=== PATIENT | male | born 1980 | race Caucasian/White ===

== ENCOUNTER 2017-03-25 15:52 | Emergency (ER) | payer SELFPAY ==
[~2017-03-25] VITALS: Ht 172.7 cm; Wt 61.9 kg
[2017-03-25 15:59] VITALS: BP 113/55; PULSE 86; RESP 16; TEMP 99; O2SAT 96
[2017-03-25] MEDS ORDERED: VANCOMYCIN INJ 1,000 MG in SODIUM CHLOR 0.9% 250 ML INJ 250 ML IV ONE (16:45)
[2017-03-25] MEDS ORDERED: PIPERACIL-TAZO 3.375 GM PREMIX 50 ML IV ONE (16:45)
--- NOTE | 2017-03-25 16:52 | PD ---
HPI Chief Complaint: Skin Problem Time Seen by Provider: 16:38 Travel History International Travel<30 days: No Contact w/Intl Traveler<30days: No Traveled to known affect area: No History of Present Illness HPI This patient complains of right arm infection. Duration 3 days. He is he is an IV drug abuser but denies using that is an injection site. 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 Symptoms are moderately severe. He denies fever. He has a huge abscess on his right bicep. No alleviating factors. no Exacerbating factors. Pain is worse with movement of the right arm. He's had no drainage. PFSH Past Medical History Medical History: Denies Significant Hx Hx Anticoagulant Therapy: No Arthritis: No Asthma: No Heart Rhythm Problems: No Cardiovascular Problems: No High Cholesterol: No Chest Pain: No Congestive Heart Failure: No COPD: No Diminished Hearing: No GERD: No Genitourinary: No Hepatitis: No Hiatal Hernia: No Hypertension: Yes Kidney Stones: No Musculoskeletal: No Reproductive: No Immunizations Current: Yes Myocardial Infarction: No Renal Failure: No Sleep Apnea: No Ulcer: No Tetanus Vaccination: > 5 Years Influenza Vaccination: Yes Past Surgical History Cholecystectomy: No Oral Surgery: Yes (JAW) Other Surgery: No Social History Alcohol Use: Yes (OCCASIONAL) Tobacco Use: Yes (1 PPD) Substance Use: No (DENIES) Allergies-Medications (Allergen,Severity, Reaction): Coded Allergies: No Known Allergies (Verified Adverse Reaction, Unknown, 03/25/17) Reported Meds & Prescriptions Reported Meds & Active Scripts Active Clindamycin (Clindamycin HCl) 150 Mg Cap 300 Mg PO Q6H 10 Days Bactrim DS (Sulfamethoxazole-Trimethoprim) 800-160 Mg Tab 1 Tab PO BID Review of Systems General / Constitutional: No: Fever Eyes: No: Visual changes HENT: No: Headaches Cardiovascular: No: Chest Pain or Discomfort Respiratory: No: Shortness of Breath Gastrointestinal: No: Abdominal Pain Genitourinary: No: Dysuria Musculoskeletal: Positive: Pain Skin: No Rash Neurologic: No: Weakness Psychiatric: Positive: Substance Abuse, No: Depression Endocrine: No: Polydipsia Hematologic/Lymphatic: No: Easy Bruising Physical Exam Narrative GENERAL: Well-nourished, well-developed patient in no apparent distress. SKIN: Focused skin assessment reveals no rash and nodules. Skin is Warm and dry. HEAD: Atraumatic. Normocephalic. EYES: Pupils equal and round. No scleral icterus. No injection or drainage. ENT: No nasal bleeding or discharge. Mucous membranes pink and moist. NECK: Trachea midline. No JVD. CARDIOVASCULAR: Regular rate and rhythm. No murmur appreciated. RESPIRATORY: No accessory muscle use. Clear to auscultation. Breath sounds equal bilaterally. GASTROINTESTINAL: Abdomen soft, non-tender, nondistended. Hepatic and splenic margins not palpable. MUSCULOSKELETAL: No obvious deformities. No clubbing. No cyanosis. No edema. Patient has a huge abscess over the right bicep. It's fluctuant. There is no active drainage. It's tender. There is some induration and cellulitis of the upper arm around that region. Dried scabbed lesion in the left antecubital fossa. NEUROLOGICAL: Awake and alert. No obvious cranial nerve deficits. Motor grossly within normal limits. Normal speech. PSYCHIATRIC: Appropriate mood and affect; insight and judgment reduced. Data Data Last Documented VS Vital Signs Date Time Temp Pulse Resp B/P (MAP) Pulse Ox O2 Delivery O2 Flow Rate FiO2 03/25/17 15:59 99.0 86 16 113/55 (74) 96 Orders Orders Iv Access Insert/Monitor (03/25/17 16:38) Complete Blood Count With Diff (03/25/17 16:38) Comprehensive Metabolic Panel (03/25/17 16:38) Wound Culture And Gram Stain (03/25/17 16:38) Vancomycin Inj (Vancomycin Inj) (03/25/17 16:45) Piperacil-Tazo 3.375 Gm Premix (Zosyn 3. (03/25/17 16:45) Ondansetron Inj (Zofran Inj) (03/25/17 17:30) Morphine Inj (Morphine Inj) (03/25/17 17:30) Labs Laboratory Tests Test 03/25/17 16:58 White Blood Count 12.8 TH/MM3 Red Blood Count 4.61 MIL/MM3 Hemoglobin 13.1 GM/DL Hematocrit 39.4 % Mean Corpuscular Volume 85.5 FL Mean Corpuscular Hemoglobin 28.5 PG Mean Corpuscular Hemoglobin Concent 33.3 % Red Cell Distribution Width 13.3 % Platelet Count 415 TH/MM3 Mean Platelet Volume 8.2 FL Neutrophils (%) (Auto) 81.1 % Lymphocytes (%) (Auto) 10.5 % Monocytes (%) (Auto) 6.8 % Eosinophils (%) (Auto) 1.2 % Basophils (%) (Auto) 0.4 % Neutrophils # (Auto) 10.3 TH/MM3 Lymphocytes # (Auto) 1.3 TH/MM3 Monocytes # (Auto) 0.9 TH/MM3 Eosinophils # (Auto) 0.2 TH/MM3 Basophils # (Auto) 0.1 TH/MM3 CBC Comment DIFF FINAL Differential Comment Blood Urea Nitrogen 11 MG/DL Creatinine 0.61 MG/DL Random Glucose 147 MG/DL Total Protein 7.0 GM/DL Albumin 2.9 GM/DL Calcium Level 8.4 MG/DL Alkaline Phosphatase 68 U/L Aspartate Amino Transf (AST/SGOT) 20 U/L Alanine Aminotransferase (ALT/SGPT) 13 U/L Total Bilirubin 0.2 MG/DL Sodium Level 133 MEQ/L Potassium Level 4.4 MEQ/L Chloride Level 98 MEQ/L Carbon Dioxide Level 31.1 MEQ/L Anion Gap 4 MEQ/L Estimat Glomerular Filtration Rate 150 ML/MIN MDM Medical Decision Making Medical Screen Exam Complete: Yes Emergency Medical Condition: Yes Medical Record Reviewed: Yes Differential Diagnosis Abscess, cellulitis, allergic reaction Narrative Course I have reviewed the patient's electronic medical record. This patient has a huge abscess on his right bicep IV placed PA Kinsey is going to incise and drain Sample will be sent for culture and Gram stain I gave him then IV vancomycin and IV Zosyn CBC is normal Metabolic profile is normal LFTs are normal Patient will require admission for IV antibiotics for this significant right arm infection complicated by active IV drug abuse. I discussed this at length with the patient but he is signing out AGAINST MEDICAL ADVICE. I reviewed the risks with him. I think this will be much better served in the hospital. Rather than having [facility] etc. wrote him 10 days of Bactrim DS and clindamycin explaining full all this was not what I recommended and he is at risk for getting septic or losing his arm if this continues to progress Diagnosis Primary Impression: Abscess of right upper extremity Additional Impression: IV drug abuse Scripts Clindamycin (Clindamycin) 150 Mg Cap 300 MG PO Q6H for Infection for 10 Days, #80 CAP 0 Refills Prov: Onur Salguero MD 03/25/17 Sulfamethoxazole-Trimethoprim (Bactrim DS) 800-160 Mg Tab 1 TAB PO BID for Infection, #20 TAB 0 Refills Prov: Onur Salguero MD 03/25/17 Disposition: 07 AGAINST MEDICAL ADVICE Condition: Serious Onur Salguero MD Mar 25, 2017 16:52
[2017-03-25 17:20] LABS: AUTOMATED NEUTROPHIL # 10.3 TH/MM3 (1.8-7.7); BASOPHIL # 0.1 TH/MM3 (0-0.2); BASOPHIL % 0.4 % (0.0-2.0); EOSINOPHIL # 0.2 TH/MM3 (0-0.4); EOSINOPHIL % 1.2 % (0.0-4.0); HEMATOCRIT 39.4 % (39.0-51.0); HEMOGLOBIN 13.1 GM/DL (13.0-17.0); LYMPH % 10.5 % (9.0-44.0); LYMPHOCYTE # 1.3 TH/MM3 (1.0-4.8); MEAN CELL VOLUME 85.5 FL (80.0-100.0); MEAN CORPUSCULAR HEMOGLOBIN 28.5 PG (27.0-34.0); MEAN CORPUSCULAR HGB CONC 33.3 % (32.0-36.0); MEAN PLATELET VOLUME 8.2 FL (7.0-11.0); MONO % 6.8 % (0.0-8.0); MONOCYTE # 0.9 TH/MM3 (0-0.9); NEUT % 81.1 % (16.0-70.0); PLATELET COUNT 415 TH/MM3 (150-450); RED BLOOD COUNT 4.61 MIL/MM3 (4.50-5.90); RED CELL DISTRIBUTION WIDTH 13.3 % (11.6-17.2); WHITE BLOOD COUNT 12.8 TH/MM3 (4.0-11.0)
[2017-03-25] MEDS ORDERED: ONDANSETRON HCL 4 MG/2 ML VIAL IVP ONE (17:30)
[2017-03-25] MEDS ORDERED: MORPHINE SULFATE 4 MG/ML INJ IV PUSH ONE (17:30)
[2017-03-25 17:40] LABS: CHLORIDE 98 MEQ/L (98-107); SODIUM (NA) 133 MEQ/L (136-145)
[2017-03-25 17:44] LABS: ALBUMIN 2.9 GM/DL (3.4-5.0); BICARBONATE 31.1 MEQ/L (21.0-32.0); BLOOD UREA NITROGEN 11 MG/DL (7-18); CALCIUM 8.4 MG/DL (8.5-10.1); GLUCOSE,RANDOM 147 MG/DL (74-106)
[2017-03-25 17:47] LABS: ALT (GPT) 13 U/L (12-78); AST (GOT) 20 U/L (15-37); CREATININE 0.61 MG/DL (0.60-1.30); GLOMERULAR FILTRATION RATE 150 ML/MIN (>89)
[2017-03-25 17:49] LABS: TOTAL BILIRUBIN ADULT 0.2 MG/DL (0.2-1.0)
[2017-03-25 17:50] LABS: ALKALINE PHOSPHATASE 68 U/L (45-117)
--- NOTE | 2017-03-25 18:53 | PD ---
Physical Exam Narrative I was has been maintaining physician Dr. Noemy canales to perform incision and drainage the patient's abscess to the right upper extremity Data Data Last Documented VS Vital Signs Date Time Temp Pulse Resp B/P (MAP) Pulse Ox O2 Delivery O2 Flow Rate FiO2 03/25/17 15:59 99.0 86 16 113/55 (74) 96 Orders Orders Iv Access Insert/Monitor (03/25/17 16:38) Complete Blood Count With Diff (03/25/17 16:38) Comprehensive Metabolic Panel (03/25/17 16:38) Wound Culture And Gram Stain (03/25/17 16:38) Vancomycin Inj (Vancomycin Inj) (03/25/17 16:45) Piperacil-Tazo 3.375 Gm Premix (Zosyn 3. (03/25/17 16:45) Ondansetron Inj (Zofran Inj) (03/25/17 17:30) Morphine Inj (Morphine Inj) (03/25/17 17:30) Labs Laboratory Tests Test 03/25/17 16:58 White Blood Count 12.8 TH/MM3 Red Blood Count 4.61 MIL/MM3 Hemoglobin 13.1 GM/DL Hematocrit 39.4 % Mean Corpuscular Volume 85.5 FL Mean Corpuscular Hemoglobin 28.5 PG Mean Corpuscular Hemoglobin Concent 33.3 % Red Cell Distribution Width 13.3 % Platelet Count 415 TH/MM3 Mean Platelet Volume 8.2 FL Neutrophils (%) (Auto) 81.1 % Lymphocytes (%) (Auto) 10.5 % Monocytes (%) (Auto) 6.8 % Eosinophils (%) (Auto) 1.2 % Basophils (%) (Auto) 0.4 % Neutrophils # (Auto) 10.3 TH/MM3 Lymphocytes # (Auto) 1.3 TH/MM3 Monocytes # (Auto) 0.9 TH/MM3 Eosinophils # (Auto) 0.2 TH/MM3 Basophils # (Auto) 0.1 TH/MM3 CBC Comment DIFF FINAL Differential Comment Blood Urea Nitrogen 11 MG/DL Creatinine 0.61 MG/DL Random Glucose 147 MG/DL Total Protein 7.0 GM/DL Albumin 2.9 GM/DL Calcium Level 8.4 MG/DL Alkaline Phosphatase 68 U/L Aspartate Amino Transf (AST/SGOT) 20 U/L Alanine Aminotransferase (ALT/SGPT) 13 U/L Total Bilirubin 0.2 MG/DL Sodium Level 133 MEQ/L Potassium Level 4.4 MEQ/L Chloride Level 98 MEQ/L Carbon Dioxide Level 31.1 MEQ/L Anion Gap 4 MEQ/L Estimat Glomerular Filtration Rate 150 ML/MIN MDM Supervised Visit with MICHELE: Yes Procedures Procedure Narrative INCISION AND DRAINAGE OF ABSCESS: The area was prepped and was sterilely draped. A subcutaneous wheal of 1 % Xylocaine was used to anesthetize the area properly. A number [11] scalpel was used to make a [7] -mm incision across the area of the abscess. The abscess was drained, complex loculations were broken down, and irrigated with normal saline. Cultures were obtained. Quarter inch iodoform packing was placed in the wound. Sterile dressing applied. Patient advised to have packing removed in two days. Scripts No Active Prescriptions or Reported Meds Kinsey Arita Mar 25, 2017 18:53
[2017-03-25] MEDS ORDERED: BACT800T5 PO (19:15)
[2017-03-25] MEDS ORDERED: CLIN150C14 PO (19:15)
== END 2017-03-25 19:29 | disposition left against medical advice (07) ==
LOC: PHEFT 15:52
DX: L02.413 Cutaneous abscess of right upper limb (principal); F19.10 Other psychoactive substance abuse, uncomplicated; I10 Essential (primary) hypertension
CPT/HCPCS: 10061; 80053; 85025; 86403; 87070; 96365; 96366; 96375; 99283; J2270; J2405; J2543; J3370; J7050; 87205

== ENCOUNTER 2017-07-17 22:17 | Emergency (ER) | payer SELFPAY ==
[~2017-07-17] VITALS: Ht 172.7 cm; Wt 61.3 kg
[~2017-07-17 22:17] MED LIST: BACT800T5 PO; CLIN150C14 PO
[2017-07-17 22:21] VITALS: BP 128/73; PULSE 76; RESP 16; TEMP 98.3; O2SAT 98
[2017-07-17] MEDS ORDERED: SUBO8MIS SL (22:24)
--- NOTE | 2017-07-17 23:03 | PD ---
HPI Chief Complaint: Skin Problem Time Seen by Provider: 22:26 Travel History International Travel<30 days: No Contact w/Intl Traveler<30days: No Traveled to known affect area: No History of Present Illness HPI This is a 36-year-old male who has a history of IV drug use who presents to the emergency department with raised bumps on his forearms some of which are warm, moderate severity, present for 1 week associated with some chills. He has been using IV heroin. These bumps are in the areas where he shot up. He does report that he feels some chills he has had a cough. He denies any chest pain. PFSH Past Medical History Hx Anticoagulant Therapy: No Arthritis: No Asthma: No Heart Rhythm Problems: No Cardiovascular Problems: No High Cholesterol: No Chest Pain: No Congestive Heart Failure: No COPD: No Diminished Hearing: No GERD: No Genitourinary: No Hepatitis: No Hiatal Hernia: No Hypertension: Yes Kidney Stones: No Musculoskeletal: No Reproductive: No Immunizations Current: Yes Myocardial Infarction: No Renal Failure: No Sleep Apnea: No Ulcer: No Influenza Vaccination: Yes Past Surgical History Cholecystectomy: No Oral Surgery: Yes (JAW) Other Surgery: No Social History Alcohol Use: Yes (OCCASIONAL) Tobacco Use: Yes (1 PPD) Substance Use: Yes (STATED 07/17/17 "I'M PRESCRIBED SUBOXONE, BEEN USING IV HEROIN", COCAINE) Allergies-Medications (Allergen,Severity, Reaction): Coded Allergies: No Known Allergies (Verified Adverse Reaction, Unknown, 07/17/17) Reported Meds & Prescriptions Reported Meds & Active Scripts Active Reported Suboxone Sublingual Film (Buprenorphine-Naloxone Sublingual Film) 8-2 Mg Film 1 Film SL TID Unique ID number required: Review of Systems Except as stated in HPI: all other systems reviewed are Neg Physical Exam Narrative GENERAL:Well appearing, no acute distress SKIN: Multiple scattered small raised indurated lumps on the bilateral forearms , none are fluctuant HEAD: Atraumatic. Normocephalic. EYES: Pupils equal and round. No injection or drainage. ENT: Moist mucous membranes NECK: Trachea midline. CARDIOVASCULAR: Regular rate and rhythm. No murmur appreciated. RESPIRATORY: Clear to auscultation. Breath sounds equal bilaterally. GASTROINTESTINAL: Abdomen soft, non-tender, nondistended. MUSCULOSKELETAL: No obvious deformities. NEUROLOGICAL: Awake and alert. No obvious cranial nerve deficits. Moving all extremities. PSYCHIATRIC: Appropriate mood and affect; insight and judgment normal. Data Data Last Documented VS Vital Signs Date Time Temp Pulse Resp B/P (MAP) Pulse Ox O2 Delivery O2 Flow Rate FiO2 07/17/17 22:21 98.3 76 16 128/73 (91) 98 Orders Orders Sepsis Workup Initiated (07/17/17 ) Complete Blood Count With Diff (07/17/17 22:44) Comprehensive Metabolic Panel (07/17/17 22:44) Troponin I (07/17/17 22:44) Blood Glucose (07/17/17 22:44) Ecg Monitoring (07/17/17 22:44) Iv Access Insert/Monitor (07/17/17 22:44) Oximetry (07/17/17 22:44) Oxygen Administration (07/17/17 22:44) Chest, Pa & Lat (07/17/17 ) Labs Laboratory Tests Test 07/17/17 22:55 White Blood Count 9.8 TH/MM3 Red Blood Count 4.80 MIL/MM3 Hemoglobin 13.4 GM/DL Hematocrit 39.4 % Mean Corpuscular Volume 82.0 FL Mean Corpuscular Hemoglobin 27.9 PG Mean Corpuscular Hemoglobin Concent 34.0 % Red Cell Distribution Width 14.4 % Platelet Count 432 TH/MM3 Mean Platelet Volume 7.8 FL Neutrophils (%) (Auto) 66.6 % Lymphocytes (%) (Auto) 23.5 % Monocytes (%) (Auto) 4.7 % Eosinophils (%) (Auto) 2.2 % Basophils (%) (Auto) 3.0 % Neutrophils # (Auto) 6.4 TH/MM3 Lymphocytes # (Auto) 2.3 TH/MM3 Monocytes # (Auto) 0.5 TH/MM3 Eosinophils # (Auto) 0.2 TH/MM3 Basophils # (Auto) 0.3 TH/MM3 CBC Comment DIFF FINAL Differential Comment Blood Urea Nitrogen 8 MG/DL Creatinine 0.83 MG/DL Random Glucose 95 MG/DL Total Protein 7.5 GM/DL Albumin 3.2 GM/DL Calcium Level 8.5 MG/DL Alkaline Phosphatase 64 U/L Aspartate Amino Transf (AST/SGOT) 28 U/L Alanine Aminotransferase (ALT/SGPT) 19 U/L Total Bilirubin 0.3 MG/DL Sodium Level 136 MEQ/L Potassium Level 4.2 MEQ/L Chloride Level 105 MEQ/L Carbon Dioxide Level 26.6 MEQ/L Anion Gap 4 MEQ/L Estimat Glomerular Filtration Rate 105 ML/MIN Troponin I LESS THAN 0.02 NG/ML MDM Medical Decision Making Medical Screen Exam Complete: Yes Emergency Medical Condition: Yes Interpretation(s) Afebrile, no tachycardia, normotensive No leukocytosis Electrolytes are reassuring Chest x-ray is reassuring Differential Diagnosis Abscess, cellulitis, endocarditis Narrative Course This is a 36-year-old male who has a history of IV drug use who presents to the emergency department with small lesions on his forearms over the areas where he has injected. I suspect he has small regions of cellulitis and abscess from contaminated needles. He is nontoxic appearing. He is afebrile with a normal white blood cell count. I do not suspect he has endocarditis. I think he can safely be discharged with antibiotic therapy for his forearm soft tissue infection. Diagnosis Primary Impression: Cellulitis Qualified Codes: L03.119 - Cellulitis of unspecified part of limb Patient Instructions: General Instructions Additional Instructions: If you develop fever, increasing redness, warmth, or spreading of your infection , or severe pain return to the emergency department immediately as you may require antibiotics through your IV. Complete your course of antibiotics as prescribed. Med/Other Pt SpecificInfo: Prescription(s) given Scripts Cephalexin (Keflex) 500 Mg Cap 500 MG PO Q12H for Infection for 7 Days, #14 CAP 0 Refills Prov: Judi Zavala MD 07/17/17 Sulfamethoxazole-Trimethoprim (Bactrim DS) 800-160 Mg Tab 1 TAB PO BID for Infection, #14 TAB 0 Refills Prov: Judi Zavala MD 07/17/17 Disposition: 01 DISCHARGE HOME Condition: Stable Judi Zavala MD July 17, 2017 23:03
[2017-07-17 23:04] LABS: AUTOMATED NEUTROPHIL # 6.4 TH/MM3 (1.8-7.7); BASOPHIL # 0.3 TH/MM3 (0-0.2); EOSINOPHIL # 0.2 TH/MM3 (0-0.4); EOSINOPHIL % 2.2 % (0.0-4.0); HEMATOCRIT 39.4 % (39.0-51.0); HEMOGLOBIN 13.4 GM/DL (13.0-17.0); LYMPH % 23.5 % (9.0-44.0); LYMPHOCYTE # 2.3 TH/MM3 (1.0-4.8); MEAN CORPUSCULAR HEMOGLOBIN 27.9 PG (27.0-34.0); MEAN PLATELET VOLUME 7.8 FL (7.0-11.0); MONO % 4.7 % (0.0-8.0); MONOCYTE # 0.5 TH/MM3 (0-0.9); NEUT % 66.6 % (16.0-70.0); PLATELET COUNT 432 TH/MM3 (150-450); RED CELL DISTRIBUTION WIDTH 14.4 % (11.6-17.2); WHITE BLOOD COUNT 9.8 TH/MM3 (4.0-11.0)
[2017-07-17 23:11] LABS: CHLORIDE 105 MEQ/L (98-107); SODIUM (NA) 136 MEQ/L (136-145)
[2017-07-17 23:14] LABS: CALCIUM 8.5 MG/DL (8.5-10.1)
[2017-07-17 23:15] LABS: ALBUMIN 3.2 GM/DL (3.4-5.0); BICARBONATE 26.6 MEQ/L (21.0-32.0); BLOOD UREA NITROGEN 8 MG/DL (7-18); GLUCOSE,RANDOM 95 MG/DL (74-106)
--- NOTE | 2017-07-17 23:16 | RADRPT ---
EXAM DATE: 07/17/2017 11:13 PM EDT AGE/SEX: 36 years / Male INDICATIONS: Fever. CLINICAL DATA: This is the patient's initial encounter. Patient reports that signs and symptoms have been present for 1 day and indicates a pain score of 0/10. MEDICAL/SURGICAL HISTORY: None. None. COMPARISON: [facility], CHEST SINGLE AP, 12/10/2010. . FINDINGS: The lungs are clear without infiltrate, nodule, or mass. There is no appreciable pleural effusion for technique. Heart and mediastinum are unremarkable. CONCLUSION: No acute cardiopulmonary disease. Electronically signed by: Kaiden Seay MD 07/17/2017 11:15 PM EDT
[2017-07-17 23:18] LABS: ALT (GPT) 19 U/L (12-78); AST (GOT) 28 U/L (15-37); CREATININE 0.83 MG/DL (0.60-1.30); GLOMERULAR FILTRATION RATE 105 ML/MIN (>89)
[2017-07-17 23:19] LABS: TOTAL BILIRUBIN ADULT 0.3 MG/DL (0.2-1.0); TOTAL PROTEIN 7.5 GM/DL (6.4-8.2)
[2017-07-17 23:21] LABS: ALKALINE PHOSPHATASE 64 U/L (45-117)
[2017-07-17 23:23] LABS: TROPONIN I LESS THAN 0.02 NG/ML (0.02-0.05)
[2017-07-17] MEDS ORDERED: BACT800T5 PO (23:38)
[2017-07-17] MEDS ORDERED: CEPH-460 PO (23:38)
[2017-07-17 23:47] VITALS: BP 128/68
== END 2017-07-17 23:47 | disposition home or self-care (01) ==
LOC: PHED 22:17
DX: L03.119 Cellulitis of unspecified part of limb (principal); F11.90 Opioid use, unspecified, uncomplicated; I10 Essential (primary) hypertension; F17.200 Nicotine dependence, unspecified, uncomplicated
CPT/HCPCS: 71046; 80053; 84484; 85025; 99284